=== PATIENT | male | born 1970 | race Caucasian/White ===

== ENCOUNTER 2019-05-16 11:35 | Emergency (ER) | payer BC, OTHER ==
[2019-05-16] MEDS ORDERED: OXYCODONE-ACETAMINOPHEN 5-325 MG TABLET PO ONE (11:57)
[2019-05-16] MEDS ORDERED: ONDANSETRON 4 MG TAB.RAPDIS PO ONE (11:57)
[2019-05-16] MEDS ORDERED: DIPH/PERTUSS(ACELL)/TETANUS VAC/PF 0.5 ML SYR (>=10YO) IM ONE (11:58)
--- NOTE | 2019-05-16 12:05 | ER Document Report ---
ED Medical Screen (RME) - General Chief Complaint: Laceration Stated Complaint: HAND PAIN Time Seen by Provider: 05/16/19 11:54 Primary Care Provider: CAROL PRATHER [Primary Care Provider] - Follow up as needed Notes: Patient is a 48-year-old male presents to the emergency department for right index finger injury. Patient states that around 11:15 this morning he was putting a tent spike in the ground with a sledgehammer when he struck the right index finger. Patient is states his last tetanus shot was greater than 5 years ago. Patient states he has not taken anything for pain or discomfort. TRAVEL OUTSIDE OF THE [place] IN LAST 30 DAYS: No - Related Data Allergies/Adverse Reactions: No Known Allergies Allergy (Verified 05/16/19 11:50) Physical Exam - Vital signs Vitals: Temp Pulse Resp BP Pulse Ox 97.6 F 75 18 143/78 H 99 05/16/19 11:44 05/16/19 11:44 05/16/19 11:44 05/16/19 11:44 05/16/19 11:44 Interpretation: Normal - Extremities Notes: Obvious deformity to the tip of the right index finger, the nail is displaced. Patient able to bend finger at the PIP and DIP joint, < 2 sec cap refill, + flexion and extension with significant pain. Wet gauze dressing applied in tri age. Course - Vital Signs Vital signs: Temp Pulse Resp BP Pulse Ox 97.6 F 75 18 143/78 H 99 05/16/19 11:44 05/16/19 11:44 05/16/19 11:44 05/16/19 11:44 05/16/19 11:44 Doctor's Discharge - Discharge Referrals: CAROL PRATHER [Primary Care Provider] - Follow up as needed
[2019-05-16] MEDS ORDERED: CEPHALEXIN 500 MG CAPSULE PO ONE (12:15)
[2019-05-16] MEDS ORDERED: LIDOCAINE 2% INJ (20 MG/ML) 20 ML MDV INJ ONE (12:15)
--- NOTE | 2019-05-16 12:33 | RADIOLOGY REPORT (SQ) ---
EXAM DESCRIPTION: FINGER RIGHT COMPLETED DATE/TIME: 05/16/2019 12:22 pm REASON FOR STUDY: right index finger crush injury COMPARISON: None. EXAM PARAMETERS: NUMBER OF VIEWS: Three views. TECHNIQUE: AP, lateral and oblique radiographic images acquired of the right hand. LIMITATIONS: None. FINDINGS: MINERALIZATION: Normal. BONES: 1.5 mm distal tuft 2nd digit distal phalanx fracture with 2 mm distal distraction. No disloca tion. No worrisome bone lesions. JOINTS: No effusion. SOFT TISSUES: Distal soft tissue swelling -laceration. No radiopaque foreign body. OTHER: No other significant finding. IMPRESSION: 1.5 mm distal tuft 2nd digit distal phalanx fracture with 2 mm distal distraction. Distal soft tissue swelling -laceration. TECHNICAL DOCUMENTATION: JOB ID: [id number] [place]-72 2010 [employer]- All Rights Reserved Reading location - IP/workstation name: [email or web address]
--- NOTE | 2019-05-16 12:34 | ER Document Report ---
ED General - General Chief Complaint: Laceration Stated Complaint: HAND PAIN Time Seen by Provider: 05/16/19 11:54 Primary Care Provider: CAROL PRATHER [Primary Care Provider] - Follow up as needed Notes: 48-year-old male presents with right 48-year-old male presents with left index finger injury. Crushed between a steak and a sledgehammer, causing the nail to avulsed. He has no other injuries. Pain is described as severe and nonradiating worse when putting it down. TRAVEL OUTSIDE OF THE [place] IN LAST 30 DAYS: No - Related Data Allergies/Adverse Reactions: No Known Allergies Allergy (Verified 05/16/19 11:50) Past Medical History - Social History Smoking Status: Never Smoker Chew tobacco use (# tins/day): No Drug Abuse: None Family History: None Patient has suicidal ideation: No Patient has homicidal ideation: No Renal/ Medical History: Denies: Hx Peritoneal Dialysis Review of Systems - Review of Systems Notes: REVIEW OF SYSTEMS GEN: Denies fever, chills, weight loss ENT: Denies sore throat, nasal discharge, ear pain EYES: Denies blurry vision, eye pain, discharge CV: Denies chest pain, palpitations, edema RESP: Denies cough, shortness of breath, wheezing GI: Denies abdominal pain, nausea, vomiting, diarrhea MSK: Finger injury SKIN: Denies rash, skin lesions LYMPH: Denies swollen glands/lymph nodes NEURO: Denies headache, focal weakness or numbness, dizziness PSYCH: Denies depression, suicidal or homicidal ideation PHYSICAL EXAMINATION General: No acute distress, well-nourished Head: Atraumatic, normocephalic ENT: Mouth normal, oropharynx moist, lips normal Eyes: Conjunctiva normal, pupils equal, lids normal Neck: No JVD, supple, no guarding Resp: No resp distress, equal chest rise GI: Nondistended, no guarding Back: No midline or CVA tenderness Ext: Index finger: Crush injury to the distal phalangeal segment with avulsed fingernail, crush nailbed, and slight laceration extension beyond the nailbed to the lateral side of the finger pad. Full range of motion. No active bleeding. Skin: Well-perfused, no rash Neuro: Awake, alert. Face symmetric. Physical Exam - Vital signs Vitals: Temp Pulse Resp BP Pulse Ox 97.6 F 75 18 143/78 H 99 05/16/19 11:44 05/16/19 11:44 05/16/19 11:44 05/16/19 11:44 05/16/19 11:44 Course - Re-evaluation Re-evalutation: 05/16/19 12:32 Crush injury to nail bed with resultant nail avulsion. Fracture not present on x-ray. We will do my best repair the nailbed and reinsert the nail and then will bandaged up. Will start antibiotics given the gross contamination of the wound. I have discussed with the patient there likely diagnosis, aftercare plan, follow-up plans and my usual and customary return precautions. They verbalized understanding of this. - Vital Signs Vital signs: Temp Pulse Resp BP Pulse Ox 97.6 F 75 18 143/78 H 99 05/16/19 11:44 05/16/19 11:44 05/16/19 11:44 05/16/19 11:44 05/16/19 11:44 - Diagnostic Test Radiology reviewed: Image reviewed, Reports reviewed Procedures - Laceration/Wound Repair Left Distal Finger 2nd digit Time completed: 12:45 Wound length (cm): 3 Wound's Depth, Shape: Irregular, Flap, Stellate Laceration pre-procedure: Betadine prep applied Anesthetic type: 1% Lidocaine Volume Anesthetic (mLs): 5 Wound explored: Clean, No foreign body removed Irrigated w/ Saline (mLs): 100 Wound Debrided: Minimal Wound Repaired With: Sutures Suture Size/Type: 5:0, Vicryl Number of Sutures: 6 - Nail sutured into place Layer Closure?: No Complications: No Discharge - Discharge Clinical Impression: Crushing injury of left index finger Qualifiers: Encounter type: initial encounter Qualified Code(s): S67.191A - Crushing injury of left index finger, initial encounter Condition: Good Disposition: HOME, SELF-CARE Instructions: Antibiotic Ointment Protection ([facility]), Laceration Care ([facility]), Prop hylactic Antibiotic ([facility]), Tetanus Immunization Given ([facility]) Prescriptions: Cephalexin Monohydrate [Keflex 500 mg Capsule] 500 mg PO Q6H 3 Days capsule Referrals: LOCALMD,NO [Primary Care Provider] - Follow up in 1 week
[2019-05-16 13:30] VITALS: BP 140/70
== END 2019-05-16 13:29 | disposition home or self-care (01) ==
LOC: ER 11:35
DX: S67.191A Crushing injury of left index finger, initial encounter (principal); X58.XXXA Exposure to other specified factors, initial encounter; Z23 Encounter for immunization
CPT/HCPCS: 99283; 90471; 73140; 90715; 12042; J3490; S0119